=== PATIENT | male | born 1965 | race Caucasian/White ===

== ENCOUNTER 2021-10-10 12:35 | Outpatient (REF) | payer OTHER, SELFPAY ==
[2021-10-10 13:45] LABS: Anion Gap 11 (12-20); Blood Urea Nitrogen 15 mg/dL (9-16); Calcium 9.6 mg/dL (8.4-10.2); Carbon Dioxide 26 mmol/L (22-29); Chloride 104 mmol/L (96-108); Estimated Glomerular Filt Rate > 60; Glucose Random 169 mg/dL (60-115); Potassium 4.4 mmol/L (3.3-5.1); Sodium 137 mmol/L (135-145)
== END 2021-10-10 12:36 | disposition home or self-care (01) ==
LOC: HO.LAB 12:35
PROVIDERS: PCP Internal Medicine; Visit Provider Psychiatry & Neurology Neurology
DX: M54.16 Radiculopathy, lumbar region (principal)
CPT/HCPCS: 36415; 80048

== ENCOUNTER 2021-10-27 11:58 | Outpatient (REF) | payer OTHER, SELFPAY ==
--- NOTE | ~2021-10-27 | MR_ITS ---
MR LUMBAR SPINE WITHOUT CONTRAST CLINICAL INFORMATION: Lumbar disc disease. Intractable low back pain. COMPARISON: Lumbar spine MRI 03/09/2013. TECHNIQUE: MRI of the lumbar spine was obtained using routine sequences without contrast. FINDINGS: There are 5 nonrib-bearing lumbar-type vertebral bodies. There is grade 1 degenerative anterolisthesis of L4 on L5 that is new since the previous MRI. Mild Modic type I endplate signal changes at L3-L4. No additional bone marrow edema. No acute fractures. Intraosseous hemangiomas within the L2 and L5 vertebral bodies. Vertebral body heights are maintained. There is disc desiccation at all lumbar levels. Conus terminates at the L1 level. There is bilateral perinephric stranding. Left parapelvic cysts. Small left renal cyst. L1-L2: Disc contour is normal. No central canal stenosis and no foraminal stenosis. L2-L3: Small annular disc bulge and mild bilateral facet arthropathy. No central canal stenosis and no foraminal stenosis. L3-L4: Diffuse annular disc bulge and moderate bilateral facet arthropathy and ligamentum flavum thickening. Mild central canal stenosis and mild bilateral foraminal encroachment. The disc bulge contacts without compressing the traversing L4 nerve roots within the subarticular zones bilaterally, progressed. L4-L5: Grade 1 degenerative anterolisthesis. Severe bilateral hypertrophic facet arthropathy and ligamentum flavum thickening. Findings in concert result in worsening mild central canal stenosis, worsening severe bilateral subarticular zone stenosis with compression of the traversing L5 nerve roots bilaterally, and worsening mild right-sided foraminal encroachment. L5-S1: Diffuse annular disc bulge with a superimposed left paracentral disc protrusion that compresses the traversing left S1 nerve root within the left subarticular zone, unchanged. Disc osteophyte and facet arthropathy result in worsening moderate left foraminal stenosis with mild mass effect on the exiting left L5 nerve root. MR/MR lumbar spine wo con IMPRESSION: - At L5-S1, a left paracentral disc protrusion continues to compress the traversing left S1 nerve root within the left subarticular zone and progressive spondylitic changes result in worsening moderate left foraminal stenosis with mild mass effect on the exiting left L5 nerve root. - At L4-L5, new grade 1 degenerative anterolisthesis in the setting of progressive lytic changes result in worsening mild central canal stenosis, worsening severe bilateral subarticular zone stenosis with compression of the traversing L5 nerve roots bilaterally, and worsening mild right-sided foraminal encroachment. - At L3-L4, a progressive annular disc bulge contacts without compressing the traversing L4 nerve roots within the subarticular zones bilaterally.
== END 2021-10-27 11:59 | disposition home or self-care (01) ==
LOC: HO.MRI 11:58
PROVIDERS: Visit Provider Psychiatry & Neurology Neurology
DX: M51.9 Unspecified thoracic, thoracolumbar and lumbosacral intervertebral disc disorder (principal); M54.50 Low back pain, unspecified
CPT/HCPCS: 72148

== ENCOUNTER 2021-10-31 07:30 | Day surgery (SDC) | payer OTHER, SELFPAY ==
--- NOTE | ~2021-10-31 | IR_ITS ---
PROCEDURE: FLUOROSCOPY GUIDANCE FOR SPINE INJECTION CLINICAL INFORMATION: Low back pain. L4-L5 disc level radiating to left leg. COMPARISON: MRI lumbar spine 10/27/2021. TECHNIQUE: Following explaining fluoroscopy-guided lumbar epidural injection at L4-L5 disc level procedure, benefits and risk, a written consent was obtained. Patient was placed prone on fluoroscopy table and low back area was cleaned and draped in usual sterile manner. 1% lidocaine was injected posterior skin overlying the L4-L5 disc level. A 22-gauge spinal needle was then inserted from the skin into left posterior epidural space and 2 mL of nonionic contrast was injected. A single image was obtained for documentation. Subsequently 5 mg of Celestone, 3 mL of 1% lidocaine and 3 ml of 0.25% Sensorcaine was injected and needle withdrawn. Complete hemostasis was achieved at puncture site. Patient tolerated procedure extremely well. FINDINGS: On fluoroscopy-guided images obtained revealed there is mild ventral spondylosis. The vertebral heights, alignment and disc heights are maintained. There is a needle positioned at the L4-L5 disc level with contrast opacifying the posterior epidural space. Successful insertion of right posterior epidural steroid injection without immediate complications. FLUOROSCOPY TIME: 2.5 minutes DOSE AREA PRODUCT: 1348 uGy-m2 (microgray-meter squared) IR/IR inj epidural lumb/sac IMPRESSION: Successful fluoroscopy-guided left L4-L5 epidural steroid injection performed without immediate complications.
[2021-10-31 07:45] VITALS: BMI 28.1
[2021-10-31 08:19] LABS: Basophils Percent Auto 0.1 % (0-2); Eosinophils Absolute Auto 0.1 X10*3/uL (0.0-0.4); Eosinophils Percent Auto 0.6 % (0-4); Hematocrit 44.3 % (42.0-52.0); Imm Gran Abs Auto 0.17 X10*3/uL (0.00-0.03); Imm Gran Pct Auto 1.1 % (0.0-0.4); Lymphocytes Absolute Auto 3.3 X10*3/uL (1.2-4.9); Lymphocytes Percent Auto 20.7 % (20-40); MANUAL DIFF FLAG NO; Mean Corpuscular HGB Conc 33.9 g/dl (31.0-36.0); Mean Corpuscular Hemoglobin 28.9 pg (27.0-33.0); Mean Corpuscular Volume 85.4 fL (80.0-98.0); Mean Platelet Volume 10.4 fL (9.4-12.4); Monocytes Percent Auto 6.1 % (2-11); Neutrophils Absolute Auto 11.5 x10*3/uL (2.0-8.3); Neutrophils Percent Auto 71.4 % (45-73); Platelet Count 260 X10*3/uL (160-400); Red Blood Count 5.19 X10*6/uL (4.60-5.80); Red Cell Distribution Width 12.2 % (11.0-16.0); White Blood Count 16.1 X10*3/uL (4.8-10.8)
[2021-10-31 08:21] LABS: INTERNATIONAL NORM RATIO 1.2 (0.9-1.1); Prothrombin Time 13.3 SEC (9.9-13.0)
[2021-10-31 08:24] LABS: Partial Thromboplastin Time 25.3 SEC (24.1-38.0)
[2021-10-31 08:37] LABS: Glucose, Whole Blood 267 mg/dL (60-115)
[2021-10-31] MEDS: Lidocaine HCl 1 % 20 ML VIAL 5 ML SUBCUT (09:49)
[2021-10-31 09:50] VITALS: BP 184/85; PULSE 68; RESP 18; TEMP 36.7; O2SAT 97
[2021-10-31] MEDS: Betamet Acet/Betamet Na Ph 30 MG/5 ML VIAL 12 MG IM (09:51)
[2021-10-31 10:05] VITALS: BP 167/86; PULSE 66; RESP 18; O2SAT 97
[2021-10-31 10:20] VITALS: BP 177/94; PULSE 66; RESP 18; O2SAT 97
[2021-10-31 10:49] VITALS: BP 177/94; PULSE 71; RESP 16; O2SAT 97
[2021-10-31 11:19] VITALS: BP 180/83; PULSE 68; RESP 16; O2SAT 97
[2021-10-31 11:49] VITALS: BP 177/94; PULSE 69; RESP 16; O2SAT 97
== END 2021-10-31 12:02 | disposition home or self-care (01) ==
PROVIDERS: PCP Internal Medicine; Visit Provider Radiology Diagnostic Radiology
PROC: 3E0R33Z Introduction of Anti-inflammatory into Spinal Canal, Percutaneous Approach (ICD-10-PCS; principal; 2021-10-31 08:30)
DX: M54.16 Radiculopathy, lumbar region (principal); M54.40 Lumbago with sciatica, unspecified side; M51.9 Unspecified thoracic, thoracolumbar and lumbosacral intervertebral disc disorder; G89.4 Chronic pain syndrome; I10 Essential (primary) hypertension; E11.9 Type 2 diabetes mellitus without complications; E78.00 Pure hypercholesterolemia, unspecified; I25.10 Atherosclerotic heart disease of native coronary artery without angina pectoris; Z98.61 Coronary angioplasty status; Z79.84 Long term (current) use of oral hypoglycemic drugs; Z79.82 Long term (current) use of aspirin; Z79.899 Other long term (current) drug therapy
CPT/HCPCS: 36415; 62323; 82947; 85025; 85610; 85730; J0702; Q9967

== ENCOUNTER 2021-12-04 11:29 | Day surgery (SDC) | payer OTHER, SELFPAY ==
--- NOTE | ~2021-12-04 | IR_ITS ---
EXAMINATION: FLUOROSCOPY GUIDANCE FOR SPINE INJECTION CLINICAL INFORMATION: Low back pain radiating from back of the leg to the left foot. Radiculopathy. COMPARISON: MRI lumbar spine 10/27/2021. TECHNIQUE: Following explaining fluoroscopy-guided L4-L5 epidural steroid injection procedure, benefits and risk, a written consent was obtained. Patient was placed prone on fluoroscopy table and L4-L5 disc level is identified. The area of lumbar spine was cleaned and draped in usual sterile manner. 1% lidocaine was injected overlying the L4-L5 disc level. A 22-gauge spinal needle was then advanced from the skin into the left posterior epidural space and 1-2 mL of nonionic Isovue and was injected and single image obtained. Subsequently, 5 mL of Celestone, 3 mL of 1% lidocaine 3 mL of 0.25% Sensorcaine was injected and needle withdrawn. Simple Band-Aid applied postprocedure. Patient tolerated procedure extremely well without immediate complications. FINDINGS: Fluoroscopy-guided L4-L5 lumbar epidural steroid injection was performed. On visualized images, there is contrast opacifying the posterior epidural space. The vertebral heights, alignment and disc heights are normal. There is mild ventral spondylosis. No fracture, lytic or sclerotic process seen. FLUOROSCOPY TIME: 2.4 minutes. DOSE AREA PRODUCT: 828 uGy-m2 (microgray-meter squared) IR/IR inj epidural lumb/sac IMPRESSION: Successful fluoroscopy-guided L4-L5 lumbar epidural steroid injection performed without immediate complications.
[2021-12-04 12:30] LABS: MANUAL DIFF FLAG NO
[2021-12-04 12:32] LABS: Basophils Percent Auto 0.3 % (0-2); Eosinophils Absolute Auto 0.1 X10*3/uL (0.0-0.4); Eosinophils Percent Auto 0.9 % (0-4); Hematocrit 42.4 % (42.0-52.0); Hemoglobin 14.4 g/dl (14.0-18.0); Imm Gran Abs Auto 0.05 X10*3/uL (0.00-0.03); Imm Gran Pct Auto 0.6 % (0.0-0.4); Lymphocytes Absolute Auto 1.7 X10*3/uL (1.2-4.9); Lymphocytes Percent Auto 18.7 % (20-40); Mean Corpuscular Hemoglobin 29.4 pg (27.0-33.0); Mean Corpuscular Volume 86.5 fL (80.0-98.0); Monocytes Absolute Auto 0.6 X10*3/uL (0.1-1.2); Monocytes Percent Auto 6.4 % (2-11); Neutrophils Absolute Auto 6.5 x10*3/uL (2.0-8.3); Neutrophils Percent Auto 73.1 % (45-73); Platelet Count 251 X10*3/uL (160-400); Red Cell Distribution Width 12.7 % (11.0-16.0); White Blood Count 8.9 X10*3/uL (4.8-10.8)
[2021-12-04 12:44] LABS: INTERNATIONAL NORM RATIO 1.2 (0.9-1.1); Prothrombin Time 13.4 SEC (9.9-13.0)
[2021-12-04 12:46] LABS: Partial Thromboplastin Time 31.2 SEC (24.1-38.0)
[2021-12-04 13:09] LABS: Glucose, Whole Blood 184 mg/dL (60-115)
[2021-12-04 15:19] VITALS: BMI 26.6
[2021-12-04 15:26] VITALS: BP 149/76; PULSE 86; RESP 16; TEMP 36.9; O2SAT 97
[2021-12-04 15:40] VITALS: BP 157/80; PULSE 79; RESP 16; O2SAT 97
[2021-12-04 15:55] VITALS: BP 153/75; PULSE 80; RESP 16; TEMP 37.1; O2SAT 97
== END 2021-12-04 16:01 | disposition home or self-care (01) ==
PROVIDERS: Radiology Diagnostic Radiology; PCP Internal Medicine; Visit Provider Psychiatry & Neurology Neurology
PROC: 3E0R33Z Introduction of Anti-inflammatory into Spinal Canal, Percutaneous Approach (ICD-10-PCS; principal; 2021-12-04 13:00)
DX: M51.9 Unspecified thoracic, thoracolumbar and lumbosacral intervertebral disc disorder (principal); G89.29 Other chronic pain; M54.16 Radiculopathy, lumbar region; E11.9 Type 2 diabetes mellitus without complications; Z79.4 Long term (current) use of insulin; I10 Essential (primary) hypertension; I25.10 Atherosclerotic heart disease of native coronary artery without angina pectoris; Z98.61 Coronary angioplasty status; Z79.84 Long term (current) use of oral hypoglycemic drugs; Z79.82 Long term (current) use of aspirin; Z79.899 Other long term (current) drug therapy
CPT/HCPCS: 36415; 62323; 82947; 85025; 85610; 85730; J0702; Q9967

== ENCOUNTER → 2021-12-18 15:32 | Outpatient (BNVA) | payer OTHER, SELFPAY | PROVIDERS: PCP Internal Medicine; Visit Provider Internal Medicine | DX: M47.26 Other spondylosis with radiculopathy, lumbar region (principal); M48.062 Spinal stenosis, lumbar region with neurogenic claudication; M54.51 Vertebrogenic low back pain; M62.838 Other muscle spasm; Z79.899 Other long term (current) drug therapy | CPT/HCPCS: 99202 ==

== ENCOUNTER 2024-03-15 11:53 | Emergency (ER) | payer OTHER, SELFPAY ==
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
[2024-03-15 12:17] VITALS: BP 131/62; PULSE 78; RESP 16; TEMP 36.4; O2SAT 99; BMI 23.5
== END 2024-03-15 15:51 | disposition left against medical advice (07) ==
PROVIDERS: Emergency Provider Emergency Medicine; PCP Internal Medicine
DX: S09.90XA Unspecified injury of head, initial encounter (principal); S19.9XXA Unspecified injury of neck, initial encounter; M54.2 Cervicalgia; R51.9 Headache, unspecified; Y04.2XXA Assault by strike against or bumped into by another person, initial encounter; Y93.89 Activity, other specified; Y92.831 Amusement park as the place of occurrence of the external cause; Y99.8 Other external cause status
CPT/HCPCS: 70450; 70486; 72125; 99281; 99284